=== PATIENT | female | born 1930 | race Caucasian/White ===

== ENCOUNTER 2018-01-16 11:17 | Day surgery (SDC) | payer MEDICARE ==
[2018-01-08 16:23] VITALS: BMI 24.7
[~2018-01-16 11:17] MED LIST: DEXAMETHASONE SOD PHOSPHATE 10 MG/ML 1 ML VIAL IV ONE; FAMOTIDINE 20 MG/2 ML VIAL IV ONE; LACTATED RINGERS 1,000 ML IV SCH; LIDOCAINE 1% 20 ML VIAL (10MG/ML) FOR IV START INTRADERMA PRN; MIDAZOLAM 2 MG/2 ML VIAL IV PRN; SCOPOLAMINE 1.5MG/72HR PATCH TRANSDERM ONE; fentaNYL (PF) 50 MCG/ML 2 ML AMP IV PRN
[2018-01-16] MEDS ORDERED: LABETALOL SYRINGE 5 MG/ML IV ONE (12:39)
[2018-01-16] MEDS ORDERED: SUCCINYLCHOLINE CHLORIDE 100 MG/5 ML SYR IV ONE (13:36)
[2018-01-16] MEDS ORDERED: PROPOFOL 10 MG/ML 20 ML VIAL IV ONE (13:36)
[2018-01-16] MEDS ORDERED: fentaNYL (PF) 50 MCG/ML 2 ML AMP ONE (13:36)
[2018-01-16] MEDS ORDERED: ePHEDrine SULFATE/0.9% NACL/PF 50 MG/5 ML SYRINGE IV ONE (13:36)
[2018-01-16] MEDS ORDERED: LIDOCAINE 1% INJ 10MG/ML (20 ML MDV) ONE (13:36)
[2018-01-16] MEDS ORDERED: BACITRACIN 500 UNIT/GM OINT 28.4 GM TUBE TOPICAL ONE ×2 (14:02→15:16)
[2018-01-16] MEDS ORDERED: LIDOCAINE 1%-EPI 1:100,000 20 ML VIAL SQ ONE (14:02)
[2018-01-16] MEDS ORDERED: BUPIVACAINE (PF) 0.5% 30 ML VIAL SQ ONE (14:03)
[2018-01-16 15:54] VITALS: TEMP 97.2
--- NOTE | 2018-01-16 15:57 | P.OP ---
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 Fairly extensive lesion is been there for a long period time and a wider resection is recommended. We decided to proceed forward with a wide resection with use of frozen section for confirmation of removal with reconstruction utilizing a full-thickness posterior to the skin graft. Patient also has a lesion of the right nasal columella and a biopsy is recommended. Operative Findings: Auricular lesion margins are negative for tumor. Nasal columellar lesion is most likely a cancer but frozen sections unable to make definitive diagnosis. We will wait for permanent section. Description of Procedure: Patient was taken to the operative room and placed in the supine position. A general inhalation anesthetic was administered to the patient by mask and subsequently intubated with a cuffed endotracheal tube by the department of anesthesia with a functioning IV line in place. Patient was monitored throughout the entire case by the department of anesthesia. The face and ear was sterilely prepped and draped in usual fashion. The nasal columellar lesion had a punch biopsy utilizing a 3 mm punch and closed with a 6-0 nylon. We sent that for frozen section and the results came back equivocal. Possible cancer but final diagnosis is waiting for permanent section. The right auricular lesion was marked and with use of a 15 blade was excised. This lesion was attached to the consult cartilage to the cartilage was excised with the lesion and sent for permanent section. The frozen section demonstrated that all margins are negative for tumor. This left a large defect in the right ear measuring 4 x 2 cm. We made an incision in the right postauricular region and into the neck and skin was excised with a 15 blade delicate plastic scissors and a Brown-Adson forceps the skin was prepped and cut to size and placed as an overlay graft. We did extensive undermining and the donor site in that accomplished closure with extensive undermining resection of redundant skin etc. we closest deeply with a 3-0 PDS 4-0 Monocryl and the skin was closed with face 50 rapid Vicryl. A bolster dressing was then applied to the right auricular skin graft in the usual fashion utilizing 50 rapid Vicryl's. The patient tolerated this well and follow-up will be in the office in 1 week. The patient is to call me if any problems should arise.
[2018-01-16 17:05] VITALS: RESP 18
[2018-01-16 18:40] VITALS: BP 166/71; PULSE 68
== END 2018-01-16 18:30 | disposition home or self-care (01) ==
LOC: OR 11:17
PROVIDERS: ATTEND Otolaryngology
DX: C44.212 Basal cell carcinoma of skin of right ear and external auricular canal (principal); C44.321 Squamous cell carcinoma of skin of nose; E78.00 Pure hypercholesterolemia, unspecified; I10 Essential (primary) hypertension; Z79.890 Hormone replacement therapy; Z79.899 Other long term (current) drug therapy
CPT/HCPCS: 11100; 11644; 15260; 93005; 88305; 88331; 88332; J1100; J2001; J3010; J0330; J2704